=== PATIENT | female | born 1980 | race African-American/Black ===

== ENCOUNTER 2016-08-20 17:49 | Inpatient (IN) | payer SELFPAY ==
[~2016-08-20] VITALS: Ht 167.6 cm; Wt 104.3 kg
[~2016-08-20 17:49] MED LIST: FERR1TAB25; PRENATAL VIT
[2016-08-20] MEDS ORDERED: SODIUM CHLORIDE 0.9% 1,000 ML IV ONE (18:37)
[2016-08-20 19:19] LABS: CLARITY URINE CLOUDY (CLEAR); GLUCOSE URINE NEGATIVE (NEGATIVE); KETONES URINE NEGATIVE (NEGATIVE); LEUKOCYTE ESTERASE URINE 2+ (NEGATIVE); NITRITE URINE POSITIVE (NEGATIVE); OCCULT BLOOD URINE NEGATIVE (NEGATIVE); PROTEIN URINE 2+ (NEGATIVE); SPECIFIC GRAVITY URINE 1.037 (1.005-1.030)
[2016-08-20 20:05] LABS: BASOPHILS % 0.7 % (0.0-2.0); EOSINOPHILS % 1.1 % (0.0-5.0); HEMATOCRIT. 24.2 % (36.0-48.0); LYMPHOCYTES % 25.1 % (20.0-50.0); MEAN CORPUSCULAR HEMOGLOBIN 17.5 pg (28.0-32.0); MEAN CORPUSCULAR HGB CONC 29.1 g/dL (31.0-37.0); MEAN CORPUSCULAR VOLUME 60.1 fL (81.0-99.0); MEAN PLATELET VOLUME 8.9 fl (7.4-10.4); MONOCYTES % 6.3 % (2.0-8.0); NEUTROPHILS % 66.8 % (40.0-76.0); PLATELET 245 x1000/uL (130-400); RED BLOOD CELL COUNT 4.03 mill/uL (4.2-5.4); RED CELL DISTRIBUTION WIDTH 19.6 % (11.6-14.6); WHITE BLOOD COUNT 10.3 x1000/uL (4.5-11.0)
[2016-08-20 20:06] LABS: BACTERIA URINE 1+; SQUAMOUS EPITHELIAL CELL URINE 2+ /lpf (RARE/1+)
[2016-08-20 20:07] LABS: COLOR URINE ORANGE (YELLOW); MUCUS URINE 3+ /lpf (< = 2+); RBC URINE 0-2 /hpf (0-2)
[2016-08-20 20:07] LABS: CHLORIDE 106 mEq/L (98-107); INDEX HEMOLYSI 1 (1-3); INDEX ICTERIC 1 (1-4); INDEX LIPEMIC 1 (1-3)
[2016-08-20 20:09] LABS: INR 1.1
[2016-08-20 20:16] LABS: ALANINE AMINOTRANSFERASE 14 IU/L (13-61); ANION GAP 12; CALCIUM 8.5 mg/dL (8.5-10.1); CARBON DIOXIDE 26 mEq/L (21-32); LIPASE 111 IU/L (73-393); UREA NITROGEN BLOOD 6 mg/dL (7-21); eGFR > 60 mL/min (>60)
[2016-08-20 20:17] LABS: DIFFERENTIAL COMMENT 1
[2016-08-20 22:00] VITALS: BP 113/81
[2016-08-21] VITALS (17 sets, daily range): BP systolic 102–128; BP diastolic 55–88
[2016-08-21] MEDS ORDERED: MAGNESIUM/ALUMINUM HYDROXIDE/SIMETHICONE 30ML UDC PO PRN (00:30)
[2016-08-21] MEDS ORDERED: ONDANSETRON HCL 4MG/2ML VIAL IV PRN (00:30)
[2016-08-21] MEDS ORDERED: IPRATROPIUM/ALBUTEROL 0.5-3(2.5)MG/3ML NEB INH PRN (00:30)
[2016-08-21] MEDS ORDERED: ACETAMINOPHEN 650MG SUPP PR PRN (00:30)
[2016-08-21] MEDS ORDERED: DIPHENHYDRAMINE 50MG/ML VIAL IV PRN (00:30)
[2016-08-21] MEDS ORDERED: CLONIDINE 0.1MG TABLET PO PRN (00:30)
[2016-08-21] MEDS ORDERED: HYDROCODONE/ACETAMINOPHEN 5/325MG TABLET PO PRN (00:30)
[2016-08-21] MEDS ORDERED: NA PHOS,M-B/NA PHOS,DI-BA ENEMA 118ML PR PRN (00:30)
[2016-08-21] MEDS ORDERED: ACETAMINOPHEN 650MG/20.3ML UDC GT PRN (00:30)
[2016-08-21] MEDS ORDERED: POTASSIUM CHLORIDE 20MEQ TABLET SR PO NR (00:45)
[2016-08-21] MEDS: ACETAMINOPHEN 325MG TABLET PO PRN ×2 (01:12→13:44)
[2016-08-21] MEDS: SODIUM CHLORIDE 0.9% INJ 3ML FLUSH IVF SCH ×2 (05:45→13:44)
[2016-08-21 07:48] LABS: BASOPHILS % 0.4 % (0.0-2.0); HEMATOCRIT. 25.8 % (36.0-48.0); HEMOGLOBIN. 7.6 g/dL (12.0-16.0); MEAN CORPUSCULAR HEMOGLOBIN 18.4 pg (28.0-32.0); MEAN CORPUSCULAR HGB CONC 29.6 g/dL (31.0-37.0); MONOCYTES % 8.1 % (2.0-8.0); NEUTROPHILS % 61.5 % (40.0-76.0); PLATELET 231 x1000/uL (130-400); RED BLOOD CELL COUNT 4.15 mill/uL (4.2-5.4); WHITE BLOOD COUNT 9.7 x1000/uL (4.5-11.0)
[2016-08-21 07:51] LABS: DIFFERENTIAL COMMENT 1
[2016-08-21 08:02] LABS: INDEX HEMOLYSI 1 (1-3); INDEX ICTERIC 1 (1-4); INDEX LIPEMIC 1 (1-3); IRON 19 ug/dL (50-175); TOTAL IRON BINDING CAPACITY 449 ug/dL (250-450)
[2016-08-21 08:03] LABS: CLARITY URINE CLEAR (CLEAR); COLOR URINE DARK YELLOW (YELLOW); GLUCOSE URINE NEGATIVE (NEGATIVE); KETONES URINE 1+ (NEGATIVE); LEUKOCYTE ESTERASE URINE 1+ (NEGATIVE); NITRITE URINE POSITIVE (NEGATIVE); OCCULT BLOOD URINE NEGATIVE (NEGATIVE); PROTEIN URINE NEGATIVE (NEGATIVE); SPECIFIC GRAVITY URINE 1.026 (1.005-1.030)
[2016-08-21 08:30] LABS: BACTERIA URINE TRACE; RBC URINE NONE SEEN /hpf (0-2); SQUAMOUS EPITHELIAL CELL URINE FEW /lpf (RARE/1+); WBC URINE 0-2 /hpf (0-2)
[2016-08-21 08:37] LABS: *AMPHETAMINES SCREEN URINE NEGATIVE (NEGATIVE); *BARBITURATES SCREEN URINE NEGATIVE (NEGATIVE); *BENZODIAZEPINES SCREEN URINE NEGATIVE (NEGATIVE); *COCAINE SCREEN URINE NEGATIVE (NEGATIVE); ECSTASY MDMA SCREEN URINE NEGATIVE (NEGATIVE); METHADONE URINE SCREEN NEGATIVE (NEGATIVE); OPIATES URINE SCREEN NEGATIVE (NEGATIVE); PHENCYCLIDINE URINE SCREEN NEGATIVE (NEGATIVE)
[2016-08-21 08:51] LABS: CANNABINOID URINE SCREEN PRESUMTIVE POSITIVE (NEGATIVE)
[2016-08-21] MEDS: FERROUS SULFATE 325MG TABLET PO SCH ×2 (12:01→17:40)
[2016-08-21] MEDS ORDERED: IRON SUCROSE COMPLEX 100 MG/5 ML ML IV SCH (16:00)
[2016-08-21 16:53] LABS: CLARITY URINE CLEAR (CLEAR); COLOR URINE YELLOW (YELLOW); GLUCOSE URINE NEGATIVE (NEGATIVE); KETONES URINE NEGATIVE (NEGATIVE); LEUKOCYTE ESTERASE URINE NEGATIVE (NEGATIVE); NITRITE URINE NEGATIVE (NEGATIVE); OCCULT BLOOD URINE NEGATIVE (NEGATIVE); PH URINE 6.5 (4.5-8.0); PROTEIN URINE NEGATIVE (NEGATIVE); SPECIFIC GRAVITY URINE 1.009 (1.005-1.030); UROBILINOGEN URINE 0.2 E.U./dL (0.2-1.0)
[2016-08-21] MEDS ORDERED: IRON SUCROSE COMPLEX 100 MG/5 ML ML IV NR (17:30)
[2016-08-21] MEDS ORDERED: FAMOTIDINE 20MG TABLET PO SCH (21:00)
== END 2016-08-21 23:00 | disposition home or self-care (01) | DRG 663 ==
LOC: ER 17:50 → 8WST 22:25
PROVIDERS: ADMIT Family Medicine; ATTEND Family Medicine
PROC: 30233N1 Transfusion of Nonautologous Red Blood Cells into Peripheral Vein, Percutaneous Approach (ICD-10-PCS; principal; 2016-08-21)
DX: D62 Acute posthemorrhagic anemia (principal); E61.1 Iron deficiency; N92.0 Excessive and frequent menstruation with regular cycle; E87.6 Hypokalemia; F12.90 Cannabis use, unspecified, uncomplicated; F17.210 Nicotine dependence, cigarettes, uncomplicated; D25.9 Leiomyoma of uterus, unspecified; Z83.3 Family history of diabetes mellitus; Z88.0 Allergy status to penicillin; Z90.49 Acquired absence of other specified parts of digestive tract
CPT/HCPCS: 36415; 36430; 74000; 76830; 76856; 80053; 80305; 81001; 81003; 81025; 82607; 82746; 83540; 83550; 83690; 85018; 85025; 85610; 86850; 86900; 86920; 96360; 96361; 99285; J7030; J7050; P9016

== ENCOUNTER 2018-01-29 19:12 | Emergency (ER) | payer SELFPAY ==
[~2018-01-29] VITALS: Ht 167.6 cm; Wt 104.7 kg
[~2018-01-29 19:12] MED LIST changes: -PRENATAL VIT
[2018-01-29 21:13] LABS: HEMATOCRIT. 24.3 % (36.0-48.0); HEMOGLOBIN. 7.2 g/dL (12.0-16.0); MEAN CORPUSCULAR HEMOGLOBIN 18.1 pg (28.0-32.0); MEAN CORPUSCULAR VOLUME 61.1 fL (81.0-99.0); MEAN PLATELET VOLUME 9.7 fl (7.4-10.4); PLATELET 234 x1000/uL (130-400); RED BLOOD CELL COUNT 3.98 mill/uL (4.2-5.4); RED CELL DISTRIBUTION WIDTH 20.3 % (11.6-14.6)
[2018-01-29 21:14] LABS: CHLORIDE 108 mEq/L (98-107)
[2018-01-29 21:22] LABS: HCG SCREEN NEGATIVE
[2018-01-29 22:16] LABS: PLATELET ESTIMATE NORMAL
[2018-01-30 01:30] VITALS: BP 101/58
== END 2018-01-30 01:33 | disposition home or self-care (01) ==
LOC: ER 19:12
DX: R06.02 Shortness of breath (principal); G44.209 Tension-type headache, unspecified, not intractable; D64.9 Anemia, unspecified; F12.10 Cannabis abuse, uncomplicated; F17.200 Nicotine dependence, unspecified, uncomplicated; Z88.0 Allergy status to penicillin; Z79.899 Other long term (current) drug therapy; Z90.49 Acquired absence of other specified parts of digestive tract; Z98.890 Other specified postprocedural states
CPT/HCPCS: 36415; 71045; 80053; 81025; 83880; 84484; 84703; 85025; 93005; 99285

== ENCOUNTER 2018-06-13 22:43 | Emergency (ER) | payer OTHER ==
[~2018-06-13] VITALS: Ht 167.6 cm; Wt 105.0 kg
[2018-06-14] MEDS ORDERED: IBUPROFEN 600MG TABLET PO ONE (07:30)
[2018-06-14 08:01] LABS: HEMATOCRIT. 28.7 % (36.0-48.0); HEMOGLOBIN. 8.3 g/dL (12.0-16.0); MEAN CORPUSCULAR HEMOGLOBIN 17.8 pg (28.0-32.0); MEAN CORPUSCULAR VOLUME 61.4 fL (81.0-99.0); MEAN PLATELET VOLUME 9.8 fl (7.4-10.4); PLATELET 166 x1000/uL (130-400); RED BLOOD CELL COUNT 4.67 mill/uL (4.2-5.4); RED CELL DISTRIBUTION WIDTH 20.8 % (11.6-14.6)
[2018-06-14 08:04] LABS: CHLORIDE 106 mEq/L (98-107)
[2018-06-14] MEDS ORDERED: ONDANSETRON 4MG ODT PO ONE (08:45)
[2018-06-14 08:47] LABS: PLATELET ESTIMATE NORMAL
[2018-06-14] MEDS ORDERED: POTASSIUM CHLORIDE 20MEQ TABLET SR PO ONE (09:30)
[2018-06-14 10:54] VITALS: BP 104/60
== END 2018-06-14 10:57 | disposition home or self-care (01) ==
LOC: ER 22:43
DX: J09.X2 Influenza due to identified novel influenza A virus with other respiratory manifestations (principal); D64.9 Anemia, unspecified; F17.200 Nicotine dependence, unspecified, uncomplicated; Z90.49 Acquired absence of other specified parts of digestive tract
CPT/HCPCS: 36415; 71045; 80048; 81025; 85025; 87804; 93005; 99284; Q0162

== ENCOUNTER 2018-11-30 15:32 | Emergency (ER) | payer OTHER ==
[~2018-11-30] VITALS: Ht 167.6 cm; Wt 105.0 kg
[2018-11-30] MEDS ORDERED: ONDANSETRON HCL 4MG/2ML INJ IV STA (16:43)
[2018-11-30] MEDS ORDERED: SODIUM CHLORIDE 0.9% 1,000 ML IV ONE (16:43)
[2018-11-30] MEDS ORDERED: MORPHINE SULFATE 4 MG/ML CPJ (NOT FOR IM USE) IV STA (16:43)
[2018-11-30 17:11] LABS: BASOPHILS % 0.3 % (0.0-2.0); EOSINOPHILS % 0.2 % (0.0-5.0); HEMATOCRIT. 30.1 % (36.0-48.0); HEMOGLOBIN. 8.8 g/dL (12.0-16.0); LYMPHOCYTES % 12.5 % (20.0-50.0); MEAN CORPUSCULAR HEMOGLOBIN 18.4 pg (28.0-32.0); MEAN CORPUSCULAR VOLUME 62.7 fL (81.0-99.0); MEAN PLATELET VOLUME 9.6 fl (7.4-10.4); MONOCYTES % 3.1 % (2.0-8.0); NEUTROPHILS % 83.9 % (40.0-76.0); PLATELET 291 x1000/uL (130-400); RED CELL DISTRIBUTION WIDTH 20.5 % (11.6-14.6)
[2018-11-30 17:19] LABS: PROTHROMBIN TIME 10.7 sec (9.6-11.0)
[2018-11-30 17:22] LABS: CHLORIDE 110 mEq/L (98-107)
[2018-11-30 17:28] LABS: CLARITY URINE CLOUDY (CLEAR); COLOR URINE ORANGE (YELLOW); KETONES URINE 2+ (NEGATIVE); LEUKOCYTE ESTERASE URINE 2+ (NEGATIVE); NITRITE URINE NEGATIVE (NEGATIVE); OCCULT BLOOD URINE 3+ (NEGATIVE); PH URINE >=9.0 (4.5-8.0); PROTEIN URINE 2+ (NEGATIVE); SPECIFIC GRAVITY URINE 1.026 (1.005-1.030)
[2018-11-30 18:03] LABS: PLATELET ESTIMATE NORMAL
[2018-11-30] MEDS ORDERED: KETOROLAC 30MG/ML VIAL IV ONE (19:45)
[2018-11-30] MEDS ORDERED: CEFTRIAXONE 1 G PREMIX 50 ML IV NR (20:15)
[2018-11-30 21:32] VITALS: BP 135/79
== END 2018-11-30 21:37 | disposition home or self-care (01) ==
LOC: ER 15:32
DX: N39.0 Urinary tract infection, site not specified (principal); D21.9 Benign neoplasm of connective and other soft tissue, unspecified; F17.210 Nicotine dependence, cigarettes, uncomplicated; R11.2 Nausea with vomiting, unspecified; Z88.0 Allergy status to penicillin; Z79.899 Other long term (current) drug therapy; Z90.49 Acquired absence of other specified parts of digestive tract; Z98.890 Other specified postprocedural states
CPT/HCPCS: 36415; 74021; 76830; 76856; 80053; 81003; 81025; 83690; 85025; 85610; 96365; 96375; 99284; 99406; J0696; J1885; J2270; J2405; J7030

== ENCOUNTER 2019-02-04 19:03 | Emergency (ER) | payer OTHER ==
[~2019-02-04] VITALS: Ht 170.2 cm; Wt 104.7 kg
[2019-02-04] MEDS ORDERED: ONDANSETRON HCL 4MG/2ML INJ IV STA (19:58)
[2019-02-04] MEDS ORDERED: KETOROLAC 30MG/ML VIAL IV STA (19:58)
[2019-02-04] MEDS ORDERED: MORPHINE SULFATE 4 MG/ML CPJ (NOT FOR IM USE) IV ONE (20:45)
[2019-02-04 20:59] LABS: CHLORIDE 110 mEq/L (98-107); HEMATOCRIT. 28.3 % (36.0-48.0); HEMOGLOBIN. 8.3 g/dL (12.0-16.0); MEAN CORPUSCULAR HEMOGLOBIN 18.1 pg (28.0-32.0); MEAN CORPUSCULAR VOLUME 61.9 fL (81.0-99.0); MEAN PLATELET VOLUME 9.4 fl (7.4-10.4); PLATELET 402 x1000/uL (130-400); RED BLOOD CELL COUNT 4.58 mill/uL (4.2-5.4); RED CELL DISTRIBUTION WIDTH 19.1 % (11.6-14.6)
[2019-02-04 23:04] LABS: PLATELET ESTIMATE NORMAL
[2019-02-04 23:20] VITALS: BP 132/62
== END 2019-02-04 23:44 | disposition home or self-care (01) ==
LOC: ER 19:03
DX: D25.9 Leiomyoma of uterus, unspecified (principal); Z90.49 Acquired absence of other specified parts of digestive tract; Z88.0 Allergy status to penicillin; F17.210 Nicotine dependence, cigarettes, uncomplicated
CPT/HCPCS: 36415; 80053; 83690; 85025; 96374; 96375; 99283; J1885; J2270; J2405

== ENCOUNTER 2019-07-19 22:40 | Emergency (ER) | payer OTHER ==
[~2019-07-19] VITALS: Ht 167.6 cm; Wt 107.0 kg
[2019-07-20] MEDS ORDERED: ONDANSETRON 4MG ODT PO ONE (02:00)
[2019-07-20 02:25] LABS: BASOPHILS % 1.2 % (0.0-2.0); EOSINOPHILS % 0.6 % (0.0-5.0); HEMATOCRIT. 27.6 % (36.0-48.0); HEMOGLOBIN. 8.3 g/dL (12.0-16.0); LYMPHOCYTES % 24.6 % (20.0-50.0); MEAN CORPUSCULAR HEMOGLOBIN 19.4 pg (28.0-32.0); MEAN CORPUSCULAR VOLUME 64.4 fL (81.0-99.0); MEAN PLATELET VOLUME 9.3 fl (7.4-10.4); NEUTROPHILS % 67.6 % (40.0-76.0); PLATELET 254 x1000/uL (130-400); RED BLOOD CELL COUNT 4.28 mill/uL (4.2-5.4); RED CELL DISTRIBUTION WIDTH 20.1 % (11.6-14.6)
[2019-07-20 02:46] LABS: CHLORIDE 108 mEq/L (98-107)
[2019-07-20 02:47] LABS: CLARITY URINE CLOUDY (CLEAR); COLOR URINE YELLOW (YELLOW); KETONES URINE 1+ (NEGATIVE); LEUKOCYTE ESTERASE URINE NEGATIVE (NEGATIVE); NITRITE URINE NEGATIVE (NEGATIVE); OCCULT BLOOD URINE TRACE (NEGATIVE); PROTEIN URINE NEGATIVE (NEGATIVE); SPECIFIC GRAVITY URINE 1.019 (1.005-1.030); UROBILINOGEN URINE 0.2 E.U./dL (0.2-1.0)
[2019-07-20 05:20] LABS: PLATELET ESTIMATE NORMAL
[2019-07-20 05:40] VITALS: BP 110/69
== END 2019-07-20 06:10 | disposition home or self-care (01) ==
LOC: ER 22:40
DX: R07.9 Chest pain, unspecified (principal); D64.9 Anemia, unspecified; Z88.0 Allergy status to penicillin; Z90.49 Acquired absence of other specified parts of digestive tract
CPT/HCPCS: 36415; 71045; 80053; 81003; 83690; 83880; 84484; 85025; 93005; 99285; Q0162

== ENCOUNTER 2019-11-13 04:21 | Emergency (ER) | payer OTHER ==
[~2019-11-13] VITALS: Ht 167.6 cm; Wt 98.0 kg
[2019-11-13] MEDS ORDERED: ONDANSETRON 4MG ODT PO ONE (05:45)
[2019-11-13] MEDS ORDERED: AMOXICILLIN/POTASSIUM CLAVULANATE 875/125MG TAB PO ONE (05:45)
[2019-11-13] MEDS ORDERED: LIDOCAINE HCL 1% 20ML VIAL (Pyxis) INJ INFIL ONE (05:45)
[2019-11-13] MEDS ORDERED: CEFTRIAXONE SODIUM 1 G/VIAL IM ONE (05:45)
[2019-11-13 06:27] VITALS: BP 122/81
== END 2019-11-13 06:27 | disposition home or self-care (01) ==
LOC: ER 04:21
DX: K04.7 Periapical abscess without sinus (principal); Z90.49 Acquired absence of other specified parts of digestive tract; Z88.0 Allergy status to penicillin
CPT/HCPCS: 96372; 99283; J0696; J3490; Q0162

== ENCOUNTER 2020-07-28 11:55 | Emergency (ER) | payer MEDICAID, OTHER ==
[~2020-07-28] VITALS: Ht 172.7 cm; Wt 85.0 kg
[2020-07-28] MEDS ORDERED: KETOROLAC 30MG/ML VIAL IV STA (12:16)
[2020-07-28] MEDS ORDERED: ONDANSETRON HCL 4MG/2ML INJ IV STA (12:16)
[2020-07-28] MEDS ORDERED: FAMOTIDINE 20MG/2ML VIAL IV STA (12:16)
[2020-07-28] MEDS ORDERED: SODIUM CHLORIDE 0.9% 1,000 ML IV ONE ×2 (12:30→14:45)
[2020-07-28 13:36] LABS: HEMATOCRIT. 30.6 % (36.0-48.0); HEMOGLOBIN. 9.5 g/dL (12.0-16.0); MEAN CORPUSCULAR HEMOGLOBIN 23.2 pg (28.0-32.0); MEAN CORPUSCULAR VOLUME 74.7 fL (81.0-99.0); MEAN PLATELET VOLUME 9.8 fl (7.4-10.4); PLATELET 235 x1000/uL (130-400)
[2020-07-28 13:44] LABS: PROTHROMBIN TIME 10.9 sec (9.6-11.0)
[2020-07-28 13:48] LABS: CHLORIDE 112 mEq/L (98-107)
[2020-07-28 14:05] LABS: HCG SCREEN NEGATIVE
[2020-07-28 14:06] LABS: CLARITY URINE CLOUDY (CLEAR); COLOR URINE BLOODY (YELLOW); KETONES URINE 3+ (NEGATIVE); LEUKOCYTE ESTERASE URINE 2+ (NEGATIVE); NITRITE URINE NEGATIVE (NEGATIVE); OCCULT BLOOD URINE 3+ (NEGATIVE); PROTEIN URINE 2+ (NEGATIVE); SPECIFIC GRAVITY URINE 1.022 (1.005-1.030)
[2020-07-28 14:13] LABS: PLATELET ESTIMATE NORMAL
[2020-07-28] MEDS ORDERED: MORPHINE SULFATE 2 MG/ML CPJ (NOT FOR IM USE) IV ONE (14:30)
[2020-07-28] MEDS ORDERED: ONDANSETRON HCL 4MG/2ML INJ IV NR (14:37)
[2020-07-28] MEDS ORDERED: METOCLOPRAMIDE HCL 10MG/2ML VIAL IV ONE (15:30)
[2020-07-28] MEDS ORDERED: NITROFURANTOIN 100MG M/M CAPSULE PO ONE (15:30)
[2020-07-28] MEDS ORDERED: POTASSIUM CHLORIDE 20MEQ TABLET SR PO ONE (15:30)
[2020-07-28 19:20] VITALS: BP 102/56
== END 2020-07-28 19:26 | disposition left against medical advice (07) ==
LOC: ER 12:04 → EDBEDREQ 16:23 → ER 19:26 → CANBEDREQ 19:54
DX: D21.9 Benign neoplasm of connective and other soft tissue, unspecified (principal); N39.0 Urinary tract infection, site not specified; D50.9 Iron deficiency anemia, unspecified; N93.9 Abnormal uterine and vaginal bleeding, unspecified; J45.909 Unspecified asthma, uncomplicated; F12.10 Cannabis abuse, uncomplicated; Z88.0 Allergy status to penicillin; Z98.890 Other specified postprocedural states
CPT/HCPCS: 36415; 80053; 81003; 81025; 83690; 84703; 85025; 85610; 93005; 96361; 96374; 96375; 96376; 99285; J1885; J2405; J2765; J3490; J7030

== ENCOUNTER 2020-08-28 18:57 | Emergency (ER) | payer OTHER ==
[~2020-08-28] VITALS: Ht 167.6 cm; Wt 100.0 kg
[2020-08-28] MEDS ORDERED: SODIUM CHLORIDE 0.9% 1,000 ML IV ONE (21:00)
[2020-08-28] MEDS ORDERED: LORAZEPAM 2MG/ML CPJ IV ONE (21:00)
[2020-08-28 21:51] LABS: BASOPHILS % 0.6 % (0.0-2.0); EOSINOPHILS % 0.1 % (0.0-5.0); HEMATOCRIT. 29.2 % (36.0-48.0); HEMOGLOBIN. 8.7 g/dL (12.0-16.0); LYMPHOCYTES % 9.8 % (20.0-50.0); MEAN CORPUSCULAR HEMOGLOBIN 21.4 pg (28.0-32.0); MEAN CORPUSCULAR VOLUME 71.2 fL (81.0-99.0); MEAN PLATELET VOLUME 9.5 fl (7.4-10.4); MONOCYTES % 3.8 % (2.0-8.0); NEUTROPHILS % 85.7 % (40.0-76.0); PLATELET 289 x1000/uL (130-400); RED BLOOD CELL COUNT 4.09 mill/uL (4.2-5.4); RED CELL DISTRIBUTION WIDTH 18.1 % (11.6-14.6)
[2020-08-28 21:58] LABS: CHLORIDE 110 mEq/L (98-107)
[2020-08-28 23:15] VITALS: BP 116/65
[2020-08-29] MEDS ORDERED: LORA-250 MT ×2 (00:17)
[2020-08-30] MEDS ORDERED: LORA-249 MT (11:37)
== END 2020-08-29 01:41 | disposition home or self-care (01) ==
LOC: ER 18:57
DX: F41.9 Anxiety disorder, unspecified (principal); I10 Essential (primary) hypertension; D64.9 Anemia, unspecified; F12.10 Cannabis abuse, uncomplicated; F17.200 Nicotine dependence, unspecified, uncomplicated; Z88.0 Allergy status to penicillin; Z79.899 Other long term (current) drug therapy; Z98.890 Other specified postprocedural states
CPT/HCPCS: 36415; 71045; 80053; 81025; 83880; 84484; 85025; 93005; 96361; 96374; 99285; J2060; J7030

== ENCOUNTER 2022-09-06 09:31 | Emergency (ER) | payer MEDICAID, OTHER ==
[~2022-09-06] VITALS: Ht 167.6 cm; Wt 104.0 kg
[~2022-09-06 09:31] MED LIST changes: +LORA-249 MT
[2022-09-06 11:00] LABS: BASOPHILS % 0.6 % (0.0-2.0); EOSINOPHILS % 1.7 % (0.0-5.0); HEMATOCRIT. 27.9 % (36.0-48.0); HEMOGLOBIN. 8.6 g/dL (12.0-16.0); LYMPHOCYTES % 23.6 % (20.0-50.0); MEAN CORPUSCULAR HEMOGLOBIN 19.7 pg (28.0-32.0); MEAN PLATELET VOLUME 9.3 fl (7.4-10.4); NEUTROPHILS % 68.1 % (40.0-76.0); PLATELET 338 x1000/uL (130-400); RED BLOOD CELL COUNT 4.35 mill/uL (4.2-5.4); RED CELL DISTRIBUTION WIDTH 19.9 % (11.6-14.6)
[2022-09-06 11:10] LABS: CHLORIDE 109 mEq/L (98-107)
[2022-09-06 11:25] LABS: HCG SCREEN NEGATIVE
[2022-09-06] MEDS ORDERED: SODIUM CHLORIDE 0.9% 1,000 ML IV ONE (12:45)
[2022-09-06 13:54] LABS: CLARITY URINE CLEAR (CLEAR); COLOR URINE YELLOW (YELLOW); KETONES URINE NEGATIVE (NEGATIVE); LEUKOCYTE ESTERASE URINE NEGATIVE (NEGATIVE); NITRITE URINE NEGATIVE (NEGATIVE); OCCULT BLOOD URINE NEGATIVE (NEGATIVE); PH URINE 8.5 (4.5-8.0); PROTEIN URINE NEGATIVE (NEGATIVE); SPECIFIC GRAVITY URINE 1.013 (1.005-1.030); UROBILINOGEN URINE 0.2 E.U./dL (0.2-1.0)
[2022-09-06 14:56] LABS: PLATELET ESTIMATE NORMAL
[2022-09-06] MEDS ORDERED: ONDA4TAB50 PO (16:23)
[2022-09-06] MEDS ORDERED: CLIN-194 PO (16:23)
[2022-09-06] MEDS ORDERED: ACET-2708 MT (16:23)
[2022-09-06 16:49] VITALS: BP 133/78
== END 2022-09-06 16:51 | disposition home or self-care (01) ==
LOC: ER 09:31
DX: K04.7 Periapical abscess without sinus (principal); M94.0 Chondrocostal junction syndrome [Tietze]; F12.10 Cannabis abuse, uncomplicated; Z88.0 Allergy status to penicillin; Z20.822 Contact with and (suspected) exposure to COVID-19
CPT/HCPCS: 36415; 71045; 80053; 81003; 83690; 84484; 84703; 85025; 87426; 87804; 93005; 96360; 99285; C9803; Z7610

== ENCOUNTER 2023-05-29 09:37 | Emergency (ER) | payer MEDICAID, OTHER ==
[~2023-05-29] VITALS: Ht 167.6 cm; Wt 86.0 kg
[~2023-05-29 09:37] MED LIST changes: +ACET-2708 MT; +CLIN-194 PO; +ONDA4TAB50 PO
[2023-05-29 09:43] VITALS: BP 124/75; PULSE 72; RESP 20; TEMP 98; O2SAT 100
== END 2023-05-29 13:00 | disposition left against medical advice (07) ==
LOC: ER 10:42
DX: R07.9 Chest pain, unspecified (principal); Z53.21 Procedure and treatment not carried out due to patient leaving prior to being seen by health care provider
CPT/HCPCS: 99281

== ENCOUNTER 2024-01-09 17:10 | Emergency (ER) | payer MEDICAID, OTHER ==
[~2024-01-09] VITALS: Ht 170.2 cm; Wt 95.0 kg
[2024-01-09 17:22] VITALS: O2SAT 100
[2024-01-09] MEDS ORDERED: CLIN-116 MT (18:40)
[2024-01-09] MEDS ORDERED: HYDR-459 MT (18:40)
[2024-01-09] MEDS ORDERED: IBUP-2029 MT (18:40)
[2024-01-09] MEDS: IBUPROFEN 600MG TABLET PO ONE (19:02)
[2024-01-09] MEDS: HYDROXYZINE 25MG TABLET PO ONE (19:02)
[2024-01-09 19:04] VITALS: BP 115/70; PULSE 88; RESP 18; TEMP 98.4
== END 2024-01-09 19:04 | disposition home or self-care (01) ==
LOC: ER 17:10
DX: K04.7 Periapical abscess without sinus (principal); Z88.0 Allergy status to penicillin; Z79.899 Other long term (current) drug therapy; Z98.890 Other specified postprocedural states; Z90.49 Acquired absence of other specified parts of digestive tract
CPT/HCPCS: 99283